=== PATIENT | female | born 1950 | race Caucasian/White ===

== ENCOUNTER 2018-10-29 17:23 | Inpatient (IN) | payer MEDICARE ==
[~2018-10-29] VITALS: Ht 165.1 cm; Wt 247.8 kg
[2018-11-07 13:36] VITALS: BP 164/69
== END 2018-11-07 17:03 | DRG 553 ==
LOC: ED 18:34 → EDIP 19:36 → 3NE 21:40 → 5SO 11-03 18:31 → 3NE 11-05 11:26
PROVIDERS: ADMIT Internal Medicine; ATTEND Internal Medicine
DX: M17.0 Bilateral primary osteoarthritis of knee (principal); E43 Unspecified severe protein-calorie malnutrition; N39.0 Urinary tract infection, site not specified; Z68.45 Body mass index [BMI] 70 or greater, adult; I12.9 Hypertensive chronic kidney disease with stage 1 through stage 4 chronic kidney disease, or unspecified chronic kidney disease; E66.01 Morbid (severe) obesity due to excess calories; E11.22 Type 2 diabetes mellitus with diabetic chronic kidney disease; N18.3 Chronic kidney disease, stage 3 (moderate); R62.7 Adult failure to thrive; W18.39XA Other fall on same level, initial encounter; Z66 Do not resuscitate; Z86.73 Personal history of transient ischemic attack (TIA), and cerebral infarction without residual deficits; Z79.899 Other long term (current) drug therapy; Y93.89 Activity, other specified; Y92.89 Other specified places as the place of occurrence of the external cause; Y99.8 Other external cause status; Z88.8 Allergy status to other drugs, medicaments and biological substances
CPT/HCPCS: 36415; 71045; 80048; 80053; 80061; 81001; 82040; 82962; 83036; 83735; 83880; 84100; 84439; 84443; 84484; 85025; 87077; 87086; 87186; 93005; 93306; 99285; G0378; J0696; J0360; J3475; J7030